=== PATIENT | female | born 1970 | race Caucasian/White ===

== ENCOUNTER 2017-04-18 11:50 | Emergency (ER) | payer MEDICARE, MEDICAID ==
[2017-04-18] MEDS ORDERED: Lorazepam 2 MG/ML VIAL ONE (12:16)
[2017-04-18 12:34] LABS: #Eosinphils 0.1 thou/uL (0.0-0.7); #Lymphocytes 1.5 thou/uL (1.20-3.40); #Monocytes 0.3 thou/uL (0.11-0.59); #Neutrophils 2.2 thou/uL (1.40-6.50); %Basophils 1.1 % (0.0-1.0); %Eosinophils 1.6 % (0.0-10.0); %Lymphocytes 36.6 % (21.0-51.0); %Monocytes 6.9 % (0.0-10.0); %Neutrophils 53.8 % (42.0-75.0); Hemoglobin 13.3 g/dL (12.0-16.0); Mean Corpuscular HGB CONC 34.4 g/dL (32.0-36.0); Mean Corpuscular Hemoglobin 29.1 pg (27.0-31.0); Mean Corpuscular Volume 84.6 fl (81.0-99.0); Mean Platelet Volume 8.6 fL (7.4-10.4); Platelet Count 108 thou/uL (130-400); RBC Distribution Width 11.3 % (11.5-14.5); Red Blood Cell (RBC) Count 4.59 mill/uL (4.20-5.40); White Blood Cell (WBC) Count 4.2 thou/uL (4.8-10.8)
[2017-04-18 12:36] LABS: MDiff Complete? YES; Manual Diff?? NO
[2017-04-18 12:51] LABS: ALT (SGPT) 17 U/L (8-55); AST (SGOT) 19 U/L (5-34); Albumin 4.1 g/dL (3.5-5.0); Alkaline Phosphatase 53 U/L (40-150); Anion Gap 13 mmol/L (10-20); BUN (Urea Nitrogen) 11 mg/dL (7.0-18.7); Calc. Creatinine Clearance 0 mL/min (70-130); Calcium 8.5 mg/dL (7.8-10.44); Carbon Dioxide 22 mmol/L (22-29); Chloride 109 mmol/L (98-107); Estimated GFR-MDRD 88; Globulin 2.9 g/dL (2.4-3.5); Glucose 116 mg/dL (70-105); Sodium 141 mmol/L (136-145)
[2017-04-18] MEDS ORDERED: Potassium Chloride 20 MEQ/100 ML PREMIX BAG ONE (13:55)
[2017-04-18 14:10] LABS: INR-International Normal Ratio 2.2; PTT 35.3 SEC (22.9-36.1); Prothrombin Time 25.3 SEC (12.0-14.7)
== END 2017-04-18 14:25 | disposition home or self-care (01) ==
LOC: BURERS 11:50
DX: F43.20 Adjustment disorder, unspecified (principal); E87.6 Hypokalemia; K21.9 Gastro-esophageal reflux disease without esophagitis; G40.909 Epilepsy, unspecified, not intractable, without status epilepticus; F32.9 Major depressive disorder, single episode, unspecified; F41.9 Anxiety disorder, unspecified; G35 Multiple sclerosis; Z86.718 Personal history of other venous thrombosis and embolism; Z79.01 Long term (current) use of anticoagulants; Z79.899 Other long term (current) drug therapy
CPT/HCPCS: 36415; 80053; 85025; 85610; 85730; 94760; 96374; A4353; J2060; J3480

== ENCOUNTER 2017-04-21 15:29 | Outpatient (CLI) | payer MEDICARE, MEDICAID ==
[2017-04-21 16:35] LABS: Prothrombin Time 23.3 SEC (12.0-14.7)
[2017-04-21 17:56] LABS: Bilirubin Negative (Negative); Blood, Urine Negative (Negative); Clarity Cloudy (Clear); Glucose, Urine (Dipstick) Negative (Negative); Leukocyte Trace (Negative); Nitrite Positive (Negative); Protein, Urine (Dipstick) Negative (Neg-Trace); Specific Gravity, Urine 1.025 (1.005-1.030); pH, Urine 6.5 (5.0-9.0)
[2017-04-21 18:03] LABS: Bacteria/HPF Rare-Few HPF (None Seen); Crystals/HPF None Seen HPF (Negative); Hyaline Casts/LPF NONE SEEN LPF (0-3 Hyaline); Other Casts/LPF None Seen LPF (0-3 Hyaline); Oval Fat Bodies/HPF None Seen HPF (None Seen); RBC/HPF 0-3 HPF (0-3); Renal Epithelial None Seen HPF (0-3); Sperm/HPF None Seen HPF (None Seen); Squamous Epithelial 0-3 HPF (0-3); Transitional Epithelial NONE SEEN HPF (0-3); Trichomonas/HPF None Seen HPF (None Seen); WBC/HPF 0-3 HPF (0-3); Yeast-All Forms None Seen HPF (None Seen)
== END 2017-04-21 15:30 | disposition home or self-care (01) ==
LOC: HPCALD 15:29
PROVIDERS: ATTEND Family Medicine
DX: R30.0 Dysuria (principal); R58 Hemorrhage, not elsewhere classified
CPT/HCPCS: 36415; 81001; 85610; 87086

== ENCOUNTER 2017-06-16 14:28 | Emergency (ER) | payer MEDICARE, MEDICAID ==
[2017-06-16] MEDS ORDERED: Lidocaine 1% w/Epinephrine 1:100K 30 ML VIAL ONE (14:44)
[2017-06-16] MEDS ORDERED: HYDROcodone/Acetaminophen 10/325 mg Tablet ONE (14:45)
[2017-06-16] MEDS ORDERED: Adacel (T-DAP) 0.5 ML VIAL ONE (15:14)
[2017-06-16] MEDS ORDERED: Ciprofloxacin 500 MG TAB ONE (15:19)
[2017-06-16] MEDS ORDERED: Bacitracin Zinc 1 Packet ONE (15:22)
== END 2017-06-16 15:28 | disposition home or self-care (01) ==
LOC: BURERS 14:28
DX: S01.511A Laceration without foreign body of lip, initial encounter (principal); S00.83XA Contusion of other part of head, initial encounter; Z23 Encounter for immunization; K21.9 Gastro-esophageal reflux disease without esophagitis; Z86.718 Personal history of other venous thrombosis and embolism; F41.9 Anxiety disorder, unspecified; G35 Multiple sclerosis; G40.909 Epilepsy, unspecified, not intractable, without status epilepticus; W19.XXXA Unspecified fall, initial encounter
CPT/HCPCS: 12011; 40650; 90471; 90715; J2001

== ENCOUNTER 2017-10-04 14:21 | Outpatient (CLI) | payer MEDICARE, MEDICAID ==
--- NOTE | 2017-10-04 21:34 | RAD ---
LEFLT HAND THREE VIEWS: FINDINGS: Longitudinal fractures of the distal fifth metacarpal are seen. Displacement is minimal. The other lynsey zo of the hand and wrist appear intact. IMPRESSION: Longitudinal fractures of the distal fifth metacarpal. POS: HOME
== END 2017-10-04 14:22 | disposition home or self-care (01) ==
LOC: BURRAD 14:21
PROVIDERS: ATTEND Family Medicine
DX: M79.89 Other specified soft tissue disorders (principal); S62.307A Unspecified fracture of fifth metacarpal bone, left hand, initial encounter for closed fracture

== ENCOUNTER 2017-11-13 17:52 | Emergency (ER) | payer MEDICARE, MEDICAID ==
[2017-11-13] MEDS ORDERED: Midazolam HCl 2 mg/2 ml Vial ONE (18:06)
[2017-11-13] MEDS ORDERED: levETIRAcetam 250 MG TAB PO SCH (19:30)
== END 2017-11-13 20:20 | disposition home or self-care (01) ==
LOC: BURERS 17:52
DX: G40.909 Epilepsy, unspecified, not intractable, without status epilepticus (principal); F41.9 Anxiety disorder, unspecified; F32.9 Major depressive disorder, single episode, unspecified; Z79.01 Long term (current) use of anticoagulants; Z79.899 Other long term (current) drug therapy
CPT/HCPCS: 96374; J2250

== ENCOUNTER 2018-01-02 20:58 | Emergency (ER) | payer MEDICARE, OTHER ==
[2018-01-02] MEDS ORDERED: Lorazepam 0.5 MG TAB ONE ×2 (21:38→21:41)
--- NOTE | 2018-01-02 22:16 | CT ---
CT OF THE BRAIN WITHOUT CONTRAST: 01/02/2018 COMPARISON: Study done at [facility] on 02/03/2017. FINDINGS: A little soft tissue swelling may be present over the soft tissues of the forehead, just to the right of midline. No skull fracture is seen. The visible paranasal sinuses are clear. The sphenoid sinu s shows no air-fluid level. The ventricles are unchanged in size from the prior study and show no shift. An extensive area of en cephalomalacia in the left posterior parietal region appears about the same as before. No intracrani al bleeding or extraaxial hematoma is seen. There are no findings strongly suggestive of an acute st roke. No mass is detected. IMPRESSION: Old left-sided stroke but no acute intracranial findings. POS: HOME
== END 2018-01-02 22:22 | disposition home or self-care (01) ==
LOC: BURERS 20:58
DX: S00.83XA Contusion of other part of head, initial encounter (principal); R56.9 Unspecified convulsions; K21.9 Gastro-esophageal reflux disease without esophagitis; G35 Multiple sclerosis; F41.9 Anxiety disorder, unspecified; F32.9 Major depressive disorder, single episode, unspecified; Z79.01 Long term (current) use of anticoagulants; Z91.14 Patient's other noncompliance with medication regimen; Z79.899 Other long term (current) drug therapy
CPT/HCPCS: 70450

== ENCOUNTER 2018-01-22 12:07 | Observation (INO) | payer MEDICARE, MEDICAID ==
[2018-01-22] MEDS ORDERED: Lorazepam 2 MG/ML VIAL ONE (12:25)
[2018-01-22 12:30] LABS: #Monocytes 0.3 thou/uL (0.11-0.59); #Neutrophils 5.8 thou/uL (1.40-6.50); %Basophils 0.6 % (0.0-1.0); %Eosinophils 0.6 % (0.0-10.0); %Lymphocytes 14.2 % (21.0-51.0); %Monocytes 4.7 % (0.0-10.0); %Neutrophils 79.9 % (42.0-75.0); Hemoglobin 14.7 g/dL (12.0-16.0); Mean Corpuscular HGB CONC 36.6 g/dL (32.0-36.0); Mean Corpuscular Volume 79.1 fl (81.0-99.0); Mean Platelet Volume 6.4 fL (7.4-10.4); Platelet Count 173 thou/uL (130-400); RBC Distribution Width 11.8 % (11.5-14.5); Red Blood Cell (RBC) Count 5.06 mill/uL (4.20-5.40); White Blood Cell (WBC) Count 7.3 thou/uL (4.8-10.8)
[2018-01-22 12:44] LABS: ALT (SGPT) 23 U/L (8-55); AST (SGOT) 23 U/L (5-34); Albumin 4.4 g/dL (3.5-5.0); Alkaline Phosphatase 70 U/L (40-150); Anion Gap 13 mmol/L (10-20); BUN (Urea Nitrogen) 16 mg/dL (7.0-18.7); Bilirubin, Total 0.5 mg/dL (0.2-1.2); Calc. Creatinine Clearance 0 mL/min (70-130); Calcium 9.1 mg/dL (7.8-10.44); Carbon Dioxide 25 mmol/L (22-29); Chloride 107 mmol/L (98-107); Estimated GFR-MDRD 74; Globulin 3.1 g/dL (2.4-3.5); Glucose 239 mg/dL (70-105); Potassium 3.9 mmol/L (3.5-5.1); Protein, Total 7.5 g/dL (6.0-8.3); Sodium 141 mmol/L (136-145)
[2018-01-22 12:58] LABS: Pregnancy Test - Urine (BHCG) Negative (Negative); Pregu Control Background? CLEAR/WHITE (CLR/WHITE); Pregu Control Bar Appear? YES (CONTROL BAR); Specific Gravity 1.027 (1.002-1.036)
[2018-01-22 12:59] LABS: Bilirubin Negative (Negative); Clarity Cloudy (Clear); Glucose, Urine (Dipstick) 100 mg/dL (Negative); Leukocyte Negative (Negative); Nitrite Negative (Negative); Protein, Urine (Dipstick) 30 mg/dL (Neg-Trace); Specific Gravity, Urine 1.027 (1.005-1.030); Urobilinogen 0.2 mg/dL (0.2-1.0)
[2018-01-22 13:00] LABS: Blood, Urine Small (Negative)
[2018-01-22 13:02] LABS: Bacteria/HPF 4+ HPF (None Seen); Squamous Epithelial 0-3 HPF (0-3); WBC/HPF 0-3 HPF (0-3)
[2018-01-22] MEDS ORDERED: Acetaminophen 325 MG TAB ONE (13:09)
[2018-01-22 13:20] LABS: INR-International Normal Ratio 2.5; Prothrombin Time 27.6 SEC (12.0-14.7)
[2018-01-22 13:21] LABS: PTT 34.5 SEC (22.9-36.1)
[2018-01-22] MEDS ORDERED: cefTRIAXone\\ROCEPHIN 1 GM VIAL ONE (14:46)
[2018-01-22] MEDS ORDERED: Water For Injection,Sterile 20 ML ONE (14:46)
[2018-01-22 15:43] LABS: CSF Source CSF; Clarity Clear (Clear); RBC Count - Manual 0 /cumm (None Seen); Tube # 4; WBC/NonHematics Count - Manual 2 /cumm (0-5)
[2018-01-22 15:44] LABS: Color Of CSF Supernatant COLORLESS (Colorless); Tube # 2; Unspun CSF Color COLORLESS (Colorless)
[2018-01-22 15:52] LABS: CSF, Glucose 82 mg/dl (40-70); CSF, Protein 32 mg/dL (15-40)
--- NOTE | 2018-01-22 16:58 | RAD ---
AP PORTABLE CHEST: 01/22/2018 1252 HOURS COMPARISON: Study from 01/22/2017 from [facility]. FINDINGS: The heart is normal in size. There is no infiltrate or effusion today. There is no edema or vascula r congestion. The trachea is midline. No gross fractures were identified. IMPRESSION: No acute findings. POS: HOME
--- NOTE | 2018-01-22 16:59 | CT ---
CT BRAIN WITHOUT CONTRAST: 01/22/2018 COMPARISON: 01/02/2018 FINDINGS: No intracranial bleeding or extraaxial hematoma is seen. The patient's old left parietal stroke with associated encephalomalacia is noted, as usual. It is unchanged in appearance. There are no findin gs of acute stroke, mass, or edema. The ventricles are normal in size and show no shift. No skull f racture is seen. The sphenoid sinus is clear. The mastoid air cells are under-aerated on the left s berta. IMPRESSION: Old left parietal stroke, but no acute intracranial findings. POS: HOME
[2018-01-22] MEDS ORDERED: Ondansetron HCl/PF 4 MG/2 ML Vial IVP PRN (18:07)
[2018-01-22] MEDS ORDERED: Ondansetron ODT 4 MG TAB SL PRN (18:07)
[2018-01-22] MEDS ORDERED: Acetaminophen 325 MG TAB PO PRN (18:07)
[2018-01-22] MEDS ORDERED: HYDROcodone/Acetaminophen 5/325 mg Tablet PO PRN (18:07)
[2018-01-22] MEDS ORDERED: Baclofen 10 MG TAB PO PRN (18:56)
[2018-01-22] MEDS: levETIRAcetam 250 MG TAB PO SCH (21:46)
[2018-01-22] MEDS: MYCOPHENOLATE 1000 MG PO SCH (23:30)
[2018-01-22] MEDS: LACOSAMIDE 100 MG PO SCH (23:30)
[2018-01-23 05:56] LABS: #Eosinphils 0.1 thou/uL (0.0-0.7); #Lymphocytes 1.4 thou/uL (1.20-3.40); #Monocytes 0.4 thou/uL (0.11-0.59); #Neutrophils 4.4 thou/uL (1.40-6.50); %Basophils 0.6 % (0.0-1.0); %Lymphocytes 21.6 % (21.0-51.0); %Monocytes 6.5 % (0.0-10.0); %Neutrophils 69.4 % (42.0-75.0); Hemoglobin 11.8 g/dL (12.0-16.0); Mean Corpuscular HGB CONC 35.5 g/dL (32.0-36.0); Mean Corpuscular Hemoglobin 27.8 pg (27.0-31.0); Mean Corpuscular Volume 78.5 fl (81.0-99.0); Mean Platelet Volume 6.8 fL (7.4-10.4); Platelet Count 127 thou/uL (130-400); RBC Distribution Width 11.7 % (11.5-14.5); Red Blood Cell (RBC) Count 4.24 mill/uL (4.20-5.40); White Blood Cell (WBC) Count 6.3 thou/uL (4.8-10.8)
[2018-01-23 06:13] LABS: Anion Gap 12 mmol/L (10-20)
[2018-01-23 06:16] LABS: ALT (SGPT) 22 U/L (8-55); AST (SGOT) 21 U/L (5-34); Albumin 3.4 g/dL (3.5-5.0); Alkaline Phosphatase 51 U/L (40-150); BUN (Urea Nitrogen) 8 mg/dL (7.0-18.7); Bilirubin, Total 1.1 mg/dL (0.2-1.2); Calc. Creatinine Clearance 0 mL/min (70-130); Calcium 8.5 mg/dL (7.8-10.44); Carbon Dioxide 23 mmol/L (22-29); Chloride 109 mmol/L (98-107); Estimated GFR-MDRD Greater than 90; Globulin 2.5 g/dL (2.4-3.5); Glucose 94 mg/dL (70-105); Potassium 3.6 mmol/L (3.5-5.1); Protein, Total 5.9 g/dL (6.0-8.3); Sodium 140 mmol/L (136-145)
[2018-01-23] MEDS ORDERED: Multivitamin W/ Minerals 1 TAB PO SCH (09:00)
[2018-01-23] MEDS ORDERED: Potassium Chloride 10 MEQ TAB PO SCH (09:00)
[2018-01-23] MEDS: levETIRAcetam 250 MG TAB PO SCH (09:17)
[2018-01-23] MEDS: LACOSAMIDE 100 MG PO SCH (09:18)
[2018-01-23] MEDS: MYCOPHENOLATE 1000 MG PO SCH (09:18)
[2018-01-23 09:51] VITALS: BP 112/57; TEMP 98.7
[2018-01-23] MEDS ORDERED: cefTRIAXone\\ROCEPHIN 1 GM in Sodium Chloride 0.9% 100 ML IVPB SCH (15:00)
[2018-01-23 15:16] LABS: Hemoglobin A1c 4.9 % (4.0-6.0)
[2018-01-23] MEDS ORDERED: Warfarin Sodium 5 MG TAB PO SCH (17:00)
--- NOTE | 2018-01-24 14:35 | HP ---
DATE OF ADMISSION: 01/22/2018 DATE OF DISCHARGE: 01/23/2018 CHIEF COMPLAINT: Confusion, status post seizure. HISTORY OF PRESENT ILLNESS: A 47-year-old female with underlying multiple sclerosis and history of s eizure disorder who presented to [facility] yesterday afternoon, status pos t being found down in her bathroom at home with noted confusion. She did not have a witnessed seizur e; however, this is strongly presumed. She was brought to the ER for evaluation due to her altered s ortega and had imaging and lab work done, which showed no leukocytosis or anemia with normal electrolyt es, renal function and liver enzymes. She does have a history of PE/DVT and her INR was therapeutic at 2.5. She did have a urinary tract infection. Her initial vitals did display the patient to have a fever; due to this and her altered state, a lumbar puncture was performed with an evaluation of thi s shown to be within normal limits. Imaging was performed as well showing a chest x-ray which displa yed no acute findings and a brain CT which showed an old left parietal stroke, but no acute intracran ial findings. The patient was admitted overnight and started on Rocephin empirically for her urinary tract infection. Nursing reports the patient's mental status has improved gradually throughout her stay and into the morning evaluation where at this time she is fully alert and oriented and appears t o be back to her baseline mental function.
--- NOTE | 2018-01-25 08:13 | SS ---
DATE OF ADMISSION: 01/22/2018 DATE OF DISCHARGE: 01/23/2018 CHIEF COMPLAINT: Altered mental status. HISTORY OF PRESENT ILLNESS: This is a 47-year-old female with underlying history of multiple sclerosis and seizure disorder, was found down in her bathroom at home by a family member in an altered mental state; it is felt that she had a seizure preceding this. She was subsequently brought to the [facility] for evaluation, which showed fairly stable labs with a white blood cell count of 7.3, H and H of 14.7 and 40, normal electrolytes, kidney function, and liver function, and a therapeutic INR at 2.5 , as she is on Coumadin for history of PE and DVT. Her urine did show to be positive for 4+ bacteria. She was also noted to be febrile, and secondary to this along with altered mentation, a lumbar puncture was performed with the fluid returning to be within normal limits. Imaging included a portable chest that showed no acute findings, and a brain CT , which showed an old left parietal stroke and no acute intracranial findings. The patient was admitted secondary to her altered state and noted urinary tract infection and was started on Rocephin empirically. Upon subsequent evaluation in the morning, the patient's mental status has returned back to her baseline and nursing confirms that her mental status improved steadily from yesterday evening overnight into the morning. She is fully alert and oriented at this time. Her labs have returned and once again are within normal limits. Hemoglobin A1c was ordered secondary to the initial glucose of 239; however, the A1c is normal at 4.9. Discussion with the patient revealed that she had run out of her seizure medications and had missed a couple doses. This has been felt to lead to her seizure with subsequent postictal state. She remained afebrile overnight, feels well this morning, and is amenable to discharge to her home setting where she lives with her and 4 children to finish a course of p.o. antibiotics. PAST MEDICAL HISTORY: Primary progressive multiple sclerosis, depression, epilepsy, pulmonary embolism, traumatic brain injury, gastroesophageal reflux disease. PAST SURGICAL HISTORY: Brain biopsy. SOCIAL HISTORY: Denies tobacco, ETOH, or illicit drug use. ALLERGIES: PENICILLIN and DILANTIN. FAMILY HISTORY: Noncontributory. CURRENT MEDICATIONS: Iron 325 mg p.o. daily, vitamin D3 1000 units p.o. daily, CellCept 500 mg 2 tablets p.o. b.i.d., daily multivitamin, sertraline 50 mg p.o. daily, Vimpat 100 mg p.o. b.i.d., Coumadin 5 mg p.o. daily, baclofen 10 mg 1/2 tablet 3 times a day p.r.n., Keppra 500 mg 2-1/2 tablets b.i.d.. REVIEW OF SYSTEMS: General: The patient denies fever, chills, or diaphoresis. Ear, Nose, and Throat: Denies sore throat, nasal drainage, or congestion. Cardiovascular: Denies chest pain or palpitations. Respiratory: Denies shortness of breath or cough. Gastrointestinal: Denies abdominal pain, nausea , vomiting, diarrhea, or constipation. Genitourinary: Denies dysuria. Musculoskeletal: Denies joint swelling. Dermatologic: Denies rash. Neurologic: Denies headache. LABORATORY DATA AND IMAGING as per HPI. PHYSICAL EXAMINATION: VITAL SIGNS: Temperature is 98.7, pulse is 74, respiratory rate is 18, oxygen is 98% on room air, blood pressure is 112/57. GENERAL: The patient is alert and oriented, in no acute distress. HEENT: Pupils equal, round, and reactive to light. Extraocular muscles are intact bilaterally. Sclerae are clear. Head, eyes, ears, nose, and throat within normal limits. Moist mucous membranes. NECK: Supple, with no meningeal signs. CARDIOVASCULAR: Regular rate and rhythm, normal S1 and S2. No murmurs, rubs, or gallops. RESPIRATORY: Clear to auscultation bilaterally without wheezes, rales, or rhonchi. GASTROINTESTINAL: Soft, nontender to palpation, no masses. EXTREMITIES: No clubbing, cyanosis, or edema. MUSCULOSKELETAL: Generalized weakness. SKIN: No rash. NEUROLOGIC: Cranial nerves II-XII grossly intact with no focal deficits. ASSESSMENT AND PLAN: 1. Seizure disorder. The patient had likely seizure at home secondary to medication noncompliance. She does have her seizure medications at this time and it has been stressed for the need for her to continue these medications diligently. Her neurologist is Dr. Linn. 2. Postictal encephalopathy. The patient has returned to her baseline mental status. No infectious etiology noted from lab work or lumbar puncture. However , she did have noted urinary tract infection, which will be further treated. 3. Multiple sclerosis. The patient is at her baseline. 4. Urinary tract infection. She will transition to p.o. Macrobid to complete 100 mg p.o. b.i.d. for 7 days. Her preliminary urine culture shows no growth at 12 hours. This may be followed up upon as an outpatient. 5. History of pulmonary embolus and deep venous thrombosis, for which she is on Coumadin therapy and therapeutic per INR. 6. Depression. The patient will continue her selective serotonin reuptake inhibitors. DISPOSITION: The patient will discharge to her home setting where she lives with her family and may follow up with Dr. Zeng in the clinic next week with advised followup of the patient's urine culture. DAWIT
[2018-01-26] MEDS ORDERED: Warfarin Sodium 7.5 MG TAB PO SCH (17:00)
== END 2018-01-23 11:05 | disposition home or self-care (01) ==
LOC: BURERS 12:07 → BURMED 16:45
PROVIDERS: ADMIT Family Medicine; ATTEND Family Medicine
DX: G93.40 Encephalopathy, unspecified (principal); G40.909 Epilepsy, unspecified, not intractable, without status epilepticus; G35 Multiple sclerosis; F32.9 Major depressive disorder, single episode, unspecified; N39.0 Urinary tract infection, site not specified; Z86.711 Personal history of pulmonary embolism; Z86.718 Personal history of other venous thrombosis and embolism; Z88.0 Allergy status to penicillin; Z88.8 Allergy status to other drugs, medicaments and biological substances; Z79.899 Other long term (current) drug therapy; Z79.01 Long term (current) use of anticoagulants
CPT/HCPCS: 36415; 51701; 70450; 71045; 80053; 81003; 81015; 81025; 82945; 83036; 84157; 85025; 85610; 85730; 87040; 87070; 87086; 87205; 87804; 89051; 96361; 96365; 96366; 96375; A4353; G0378; J0696; J2060; J3370

== ENCOUNTER 2018-01-24 08:59 | Emergency (ER) | payer MEDICARE, MEDICAID ==
[2018-01-24] MEDS ORDERED: diphenhydrAMINE 50 MG/ML VIAL ONE (09:27)
[2018-01-24] MEDS ORDERED: Promethazine HCl 25 MG/ML VIAL ONE (09:27)
[2018-01-24 09:33] LABS: #Eosinphils 0.1 thou/uL (0.0-0.7); #Lymphocytes 0.8 thou/uL (1.20-3.40); #Monocytes 0.2 thou/uL (0.11-0.59); #Neutrophils 3.2 thou/uL (1.40-6.50); %Basophils 0.8 % (0.0-1.0); %Neutrophils 74.2 % (42.0-75.0); Hemoglobin 12.7 g/dL (12.0-16.0); Mean Corpuscular HGB CONC 35.3 g/dL (32.0-36.0); Mean Corpuscular Hemoglobin 27.9 pg (27.0-31.0); Mean Platelet Volume 6.5 fL (7.4-10.4); Platelet Count 109 thou/uL (130-400); RBC Distribution Width 11.7 % (11.5-14.5); Red Blood Cell (RBC) Count 4.57 mill/uL (4.20-5.40); White Blood Cell (WBC) Count 4.3 thou/uL (4.8-10.8)
[2018-01-24 09:35] LABS: INR-International Normal Ratio 1.6; PTT 27.6 SEC (22.9-36.1); Prothrombin Time 19.6 SEC (12.0-14.7)
[2018-01-24 09:39] LABS: MDiff Complete? YES; Manual Diff?? NO
[2018-01-24 09:43] LABS: ALT (SGPT) 21 U/L (8-55); AST (SGOT) 24 U/L (5-34); Albumin 3.9 g/dL (3.5-5.0); Alkaline Phosphatase 55 U/L (40-150); Anion Gap 13 mmol/L (10-20); BUN (Urea Nitrogen) 11 mg/dL (7.0-18.7); Calc. Creatinine Clearance 0 mL/min (70-130); Calcium 8.8 mg/dL (7.8-10.44); Carbon Dioxide 22 mmol/L (22-29); Chloride 111 mmol/L (98-107); Estimated GFR-MDRD 90; Glucose 125 mg/dL (70-105); Potassium 3.9 mmol/L (3.5-5.1); Protein, Total 6.9 g/dL (6.0-8.3); Sodium 142 mmol/L (136-145)
[2018-01-24 09:44] LABS: Clarity Clear (Clear); Glucose, Urine (Dipstick) Negative (Negative); Leukocyte Negative (Negative); Nitrite Negative (Negative); Protein, Urine (Dipstick) Negative (Neg-Trace)
[2018-01-24 09:45] LABS: Bacteria/HPF None Seen HPF (None Seen); Bilirubin Negative (Negative); Blood, Urine Trace (Negative); Other Microscopic Description C&S SET UP; RBC/HPF 0-3 HPF (0-3); Squamous Epithelial 0-3 HPF (0-3); Urobilinogen 0.2 mg/dL (0.2-1.0); WBC/HPF None Seen HPF (0-3)
--- NOTE | 2018-01-24 10:42 | RAD ---
PORTABLE CHEST: Date: 01-24-18 An AP portable film at 0909 is compared with a 01-22-18 study. FINDINGS: There has been no significant interval change. The heart is normal in size. The lungs are clear. Ther e is no edema, congestion, or pleural effusion. No major lobar infiltrate was seen. The mediastinum a ppears normal. IMPRESSION: No acute thoracic finding. POS: HOME
--- NOTE | 2018-01-24 12:34 | CT ---
CT OF THE BRAIN WITHOUT CONTRAST: DATE: 01/24/18. COMPARISON: Comparison is made with the 01/02/18 study. FINDINGS: The ventricles are normal in size with no shift. No intracranial bleeding, mass, or edema was seen. As is usual in this patient, an extensive area of encephalomalacia is seen in the left parietal erica on from an old stroke. There is little lucency around the lateral ventricles on the left posteriorly , which has been seen on multiple studies and is probably chronic ischemic change. IMPRESSION: No change since the prior two scans. Stable encephalomalacia on the left. POS: HOME
== END 2018-01-24 11:17 | disposition home or self-care (01) ==
LOC: BURERS 08:59
DX: G97.1 Other reaction to spinal and lumbar puncture (principal); K21.9 Gastro-esophageal reflux disease without esophagitis; G40.909 Epilepsy, unspecified, not intractable, without status epilepticus; F41.9 Anxiety disorder, unspecified; F32.9 Major depressive disorder, single episode, unspecified; G35 Multiple sclerosis; Z86.718 Personal history of other venous thrombosis and embolism; Z87.820 Personal history of traumatic brain injury; Z85.841 Personal history of malignant neoplasm of brain; Z79.01 Long term (current) use of anticoagulants; Z79.899 Other long term (current) drug therapy
CPT/HCPCS: 36415; 51701; 70450; 71045; 80053; 81003; 81015; 85025; 85610; 85730; 87086; 96361; 96374; 96375; A4353; J1200; J2550

== ENCOUNTER 2018-03-02 11:47 | Emergency (ER) | payer MEDICARE, MEDICAID ==
[2018-03-02 12:23] LABS: #Eosinphils 0.2 thou/uL (0.0-0.7); #Lymphocytes 1.2 thou/uL (1.20-3.40); #Monocytes 0.3 thou/uL (0.11-0.59); #Neutrophils 2.5 thou/uL (1.40-6.50); %Basophils 0.7 % (0.0-1.0); %Eosinophils 5.2 % (0.0-10.0); %Lymphocytes 28.2 % (21.0-51.0); %Monocytes 8.1 % (0.0-10.0); %Neutrophils 57.8 % (42.0-75.0); Mean Corpuscular HGB CONC 35.9 g/dL (32.0-36.0); Mean Corpuscular Hemoglobin 27.6 pg (27.0-31.0); Mean Corpuscular Volume 76.8 fL (78.0-98.0); Mean Platelet Volume 6.7 fL (7.4-10.4); Platelet Count 131 thou/uL (130-400); RBC Distribution Width 11.8 % (11.5-14.5); White Blood Cell (WBC) Count 4.3 thou/uL (4.8-10.8)
[2018-03-02 12:50] LABS: ALT (SGPT) 15 U/L (8-55); AST (SGOT) 17 U/L (5-34); Albumin 3.9 g/dL (3.5-5.0); Alkaline Phosphatase 56 U/L (40-150); Anion Gap 15 mmol/L (10-20); BUN (Urea Nitrogen) 12 mg/dL (7.0-18.7); Bilirubin, Total 0.7 mg/dL (0.2-1.2); Calc. Creatinine Clearance 0 mL/min (70-130); Carbon Dioxide 23 mmol/L (22-29); Chloride 112 mmol/L (98-107); Estimated GFR-MDRD 87; Globulin 3.1 g/dL (2.4-3.5); Glucose 93 mg/dL (70-105); Potassium 4.1 mmol/L (3.5-5.1)
[2018-03-02 12:52] LABS: Sodium 146 mmol/L (136-145)
[2018-03-02] MEDS ORDERED: Lorazepam 0.5 MG TAB ONE (12:56)
== END 2018-03-02 13:12 | disposition home or self-care (01) ==
LOC: BURERS 11:47
DX: R56.9 Unspecified convulsions (principal); F41.9 Anxiety disorder, unspecified; F32.9 Major depressive disorder, single episode, unspecified; Z79.01 Long term (current) use of anticoagulants; Z86.718 Personal history of other venous thrombosis and embolism; Z79.899 Other long term (current) drug therapy
CPT/HCPCS: 36415; 80053; 85025; 99284

== ENCOUNTER 2018-09-05 11:32 | Emergency (ER) | payer MEDICAID, MEDICARE ==
[~2018-09-05 11:32] MED LIST: Iopamidol 370 76% 100 ML VIAL ONE
[2018-09-05 12:06] LABS: #Eosinphils 0.1 thou/uL (0.0-0.7); #Monocytes 0.3 thou/uL (0.11-0.59); #Neutrophils 3.4 thou/uL (1.40-6.50); %Basophils 0.8 % (0.0-1.0); %Monocytes 4.9 % (0.0-10.0); %Neutrophils 58.3 % (42.0-75.0); Hemoglobin 13.9 g/dL (12.0-16.0); Mean Corpuscular HGB CONC 33.2 g/dL (32.0-36.0); Mean Corpuscular Hemoglobin 28.5 pg (27.0-31.0); Mean Corpuscular Volume 85.8 fL (78.0-98.0); Mean Platelet Volume 6.7 fL (7.4-10.4); Platelet Count 136 thou/uL (130-400); RBC Distribution Width 12.9 % (11.5-14.5); Red Blood Cell (RBC) Count 4.88 mill/uL (4.20-5.40); White Blood Cell (WBC) Count 5.8 thou/uL (4.8-10.8)
[2018-09-05 12:18] LABS: Anion Gap 16 mmol/L (10-20); BUN (Urea Nitrogen) 16 mg/dL (7.0-18.7); Calc. Creatinine Clearance 0 mL/min (70-130); Calcium 9.9 mg/dL (7.8-10.44); Carbon Dioxide 21 mmol/L (22-29); Chloride 108 mmol/L (98-107); Estimated GFR-MDRD 71; Glucose 91 mg/dL (70-105); Potassium 4.1 mmol/L (3.5-5.1); Sodium 141 mmol/L (136-145)
[2018-09-05 12:50] LABS: Clarity Clear (Clear); Leukocyte Negative (Negative); Nitrite Negative (Negative); Protein, Urine (Dipstick) Negative (Neg-Trace)
[2018-09-05 12:51] LABS: Bilirubin Negative (Negative); Blood, Urine Trace (Negative); Glucose, Urine (Dipstick) Negative (Negative); Urobilinogen 0.2 mg/dL (0.2-1.0)
[2018-09-05 12:56] LABS: Bacteria/HPF Rare-Few HPF (None Seen); RBC/HPF 0-3 HPF (0-3); Squamous Epithelial 0-3 HPF (0-3); WBC/HPF 0-3 HPF (0-3)
[2018-09-05] MEDS ORDERED: Midazolam HCl 2 mg/2 ml Vial ONE (14:07)
[2018-09-05 15:12] LABS: INR-International Normal Ratio 1.6; PTT 31.4 SEC (22.9-36.1); Prothrombin Time 18.7 SEC (12.0-14.7)
--- NOTE | 2018-09-05 15:41 | RAD ---
CHEST ONE VIEW: Indication: History of altered mental status, seizure. FINDINGS: Lungs are clear. Heart size is upper limits of normal. No pleural effusion or pneumothorax. No acute osseous abnormality is evident. IMPRESSION: No acute cardiopulmonary abnormality. POS: [facility]
--- NOTE | 2018-09-05 15:58 | CT ---
CTA OF THE HEAD WITH CONTRAST AND 3D REFORMATTED IMAGING CTA OF THE NECK WITH IV CONTRAST AND 3D REFORMATTED IMAGING: Date: 09/05/18 COMPARISON: CT brain dated 09/05/18. FINDINGS: No large vessel occlusion is evident. The ICAs and vertebral arteries appear patent throughout their visualized course within the neck. The intracranial course of the ICAs and vertebral arteries appear patent. Visualized aspects of the basilar, MCA, and ACAs are patent. There is a remote left parietal cortical infarct. No abnormal enhancement is demonstrated. There is scattered degenerative and osteoa rthritic change of the visualized cervicothoracic spine. There is mild mucosal thickening seen within the ethmoid air cells. There is a craniectomy involving the left parietal region. IMPRESSION: No large vessel occlusion seen in head or neck. POS: [facility]
--- NOTE | 2018-09-05 19:04 | CT ---
CT BRAIN WITHOUT CONTRAST: 09/05/2018 HISTORY/TECHNIQUE: A spiral CT of the brain is performed for evaluation following mental status changes and a possible s eizure. COMPARISON: Prior study dated 01/24/2018. FINDINGS: There has been no significant interval change. Encephalomalacia from an old left parietal injury is seen with overlying osteotomy of the high left parietal bone. There is a little bit of periventricul ar lucency in the right posterior parietal region, around the ventricles, which has not changed eithe r. There are no findings strongly suggestive of acute stroke, mass, or edema. The middle cerebral a rteries , particularly on the right. Sometimes this can mean thrombosis, but the prior scan s howed a similar finding. See CT angio to follow. IMPRESSION: Old encephalomalacia, as noted. No definite acute findings. See commends above. POS: HOME
== END 2018-09-05 17:29 | disposition home or self-care (01) ==
LOC: BURERS 11:32
DX: G40.909 Epilepsy, unspecified, not intractable, without status epilepticus (principal); I63.9 Cerebral infarction, unspecified; F41.9 Anxiety disorder, unspecified; F32.9 Major depressive disorder, single episode, unspecified; Z79.01 Long term (current) use of anticoagulants; Z79.899 Other long term (current) drug therapy
CPT/HCPCS: 36415; 70450; 70496; 70498; 71045; 80048; 81003; 81015; 85025; 85610; 85730; 96374; J2250

== ENCOUNTER 2019-04-05 09:27 | Emergency (ER) | payer MEDICARE ==
[2019-04-05 10:39] LABS: #Eosinphils 0.1 thou/uL (0.0-0.7); #Lymphocytes 0.9 thou/uL (1.20-3.40); #Monocytes 0.3 thou/uL (0.11-0.59); #Neutrophils 2.4 thou/uL (1.40-6.50); %Basophils 0.8 % (0.0-1.0); %Eosinophils 2.1 % (0.0-10.0); %Lymphocytes 23.3 % (21.0-51.0); %Monocytes 9.2 % (0.0-10.0); %Neutrophils 64.7 % (42.0-75.0); Hemoglobin 12.6 g/dL (12.0-16.0); Mean Corpuscular HGB CONC 32.3 g/dL (32.0-36.0); Mean Corpuscular Hemoglobin 26.8 pg (27.0-31.0); Mean Corpuscular Volume 82.9 fL (78.0-98.0); Platelet Count 120 thou/uL (130-400); RBC Distribution Width 12.3 % (11.5-14.5); Red Blood Cell (RBC) Count 4.71 mill/uL (4.20-5.40); White Blood Cell (WBC) Count 3.8 thou/uL (4.8-10.8)
[2019-04-05 10:53] LABS: ALT (SGPT) 18 U/L (8-55); AST (SGOT) 18 U/L (5-34); Albumin 3.8 g/dL (3.5-5.0); Alkaline Phosphatase 62 U/L (40-150); Anion Gap 12 mmol/L (10-20); BUN (Urea Nitrogen) 11 mg/dL (7.0-18.7); Bilirubin, Total 0.4 mg/dL (0.2-1.2); CK (CPK) 52 U/L (29-168); Calc. Creatinine Clearance 0 mL/min (70-130); Calcium 9.1 mg/dL (7.8-10.44); Carbon Dioxide 24 mmol/L (22-29); Chloride 109 mmol/L (98-107); Estimated GFR-MDRD Greater than 90; Globulin 2.9 g/dL (2.4-3.5); Glucose 77 mg/dL (70-105); Potassium 4.1 mmol/L (3.5-5.1); Protein, Total 6.7 g/dL (6.0-8.3); Sodium 141 mmol/L (136-145)
[2019-04-05 11:21] LABS: Bilirubin Negative (Negative); Blood, Urine Small (Negative); Clarity Clear (Clear); Glucose, Urine (Dipstick) Negative (Negative); Leukocyte Moderate (Negative); Nitrite Positive (Negative); Protein, Urine (Dipstick) Negative (Neg-Trace); Urobilinogen 0.2 mg/dL (Less than 2)
[2019-04-05 11:30] LABS: Bacteria/HPF 3+ HPF (None Seen); RBC/HPF 0-3 HPF (0-3)
== END 2019-04-05 12:29 | disposition home or self-care (01) ==
LOC: BURERS 09:27
DX: G40.909 Epilepsy, unspecified, not intractable, without status epilepticus (principal); N39.0 Urinary tract infection, site not specified; F41.9 Anxiety disorder, unspecified; F32.9 Major depressive disorder, single episode, unspecified; G35 Multiple sclerosis; J90 Pleural effusion, not elsewhere classified; Z86.718 Personal history of other venous thrombosis and embolism; Z79.01 Long term (current) use of anticoagulants; Z79.899 Other long term (current) drug therapy
CPT/HCPCS: 36415; 80053; 81003; 81015; 82550; 83605; 85025; 99284

== ENCOUNTER 2019-08-17 17:23 | Outpatient (CLI) | payer MEDICARE ==
--- NOTE | 2019-08-17 19:46 | RAD ---
RIGHT FOOT THREE VIEWS: 08/17/19 An oblique fracture of the proximal phalanx of the fourth toe is noted. Flexion deformities are seen of the great toe and little toe. The remainder of the foot appears intact No periosteal reaction was seen. IMPRESSION: Acute fracture of the proximal phalanx of the fourth toe. POS: HOME
== END 2019-08-17 17:24 | disposition home or self-care (01) ==
LOC: BURRAD 17:23
PROVIDERS: ATTEND Family Medicine
DX: M79.671 Pain in right foot (principal); S92.511A Displaced fracture of proximal phalanx of right lesser toe(s), initial encounter for closed fracture

== ENCOUNTER 2020-01-11 17:45 | Emergency (ER) | payer MEDICARE ==
[2020-01-11 18:50] LABS: #Eosinphils 0.1 thou/uL (0.0-0.7); #Lymphocytes 1.1 thou/uL (1.20-3.40); #Monocytes 0.3 thou/uL (0.11-0.59); #Neutrophils 4.5 thou/uL (1.40-6.50); %Basophils 0.7 % (0.0-1.0); %Eosinophils 1.3 % (0.0-10.0); %Lymphocytes 18.2 % (21.0-51.0); %Monocytes 5.2 % (0.0-10.0); %Neutrophils 74.7 % (42.0-75.0); Hemoglobin 14.6 g/dL (12.0-16.0); Mean Corpuscular HGB CONC 30.9 g/dL (32.0-36.0); Mean Corpuscular Hemoglobin 27.6 pg (27.0-31.0); Mean Corpuscular Volume 89.5 fL (78.0-98.0); Mean Platelet Volume 7.5 fL (7.4-10.4); Platelet Count 156 thou/uL (130-400); RBC Distribution Width 12.8 % (11.5-14.5); Red Blood Cell (RBC) Count 5.28 mill/uL (4.20-5.40)
[2020-01-11 19:05] LABS: ALT (SGPT) 58 U/L (8-55); AST (SGOT) 44 U/L (5-34); Albumin 4.6 g/dL (3.5-5.0); Alkaline Phosphatase 86 U/L (40-110); Anion Gap 14 mmol/L (10-20); BUN (Urea Nitrogen) 15 mg/dL (7.0-18.7); Bilirubin, Total 0.7 mg/dL (0.2-1.2); Calc. Creatinine Clearance 0 mL/min (70-130); Calcium 9.5 mg/dL (7.8-10.44); Carbon Dioxide 23 mmol/L (22-29); Chloride 109 mmol/L (98-107); Estimated GFR-MDRD 81; Globulin 3.3 g/dL (2.4-3.5); Glucose 126 mg/dL (70-105); Potassium 4.1 mmol/L (3.5-5.1); Protein, Total 7.9 g/dL (6.0-8.3); Sodium 142 mmol/L (136-145)
[2020-01-11] MEDS ORDERED: Lorazepam 2 MG/ML VIAL ONE ×2 (19:09→19:38)
--- NOTE | 2020-01-11 20:08 | CT ---
CT OF THE BRAIN WITHOUT CONTRAST: 01/11/[address] was done for evaluation of seizures. The patient has a history of a prior left parie griffin stroke. Comparison is made with the prior study of 09/05/18. There has been no adverse interval change. Extensive gliosis from the prior left parietal stroke is a gain seen. There were no new findings of stroke. No mass, edema, or bleeding was present. The ventric les are unchanged in size from the prior exam. A craniotomy defect is seen in the high left posterior parietal region as before. There is no major opacification of the sinuses but the mastoid air cells are under aerated. IMPRESSION: Old left parietal stroke with extensive gliosis. No acute findings. Exam little different than the scan. Preliminary report called to Dr. Arredondo at 1953 on 01/11/20. POS: HOME
== END 2020-01-11 20:43 | disposition short-term general hospital (02) ==
LOC: BURERS 17:45
DX: G40.901 Epilepsy, unspecified, not intractable, with status epilepticus (principal); S09.93XA Unspecified injury of face, initial encounter; G35 Multiple sclerosis; F32.9 Major depressive disorder, single episode, unspecified; F41.9 Anxiety disorder, unspecified; Z79.01 Long term (current) use of anticoagulants; Z79.899 Other long term (current) drug therapy; K21.9 Gastro-esophageal reflux disease without esophagitis; Z86.718 Personal history of other venous thrombosis and embolism; Z86.711 Personal history of pulmonary embolism
CPT/HCPCS: 70450; 80053; 85025; 94760; J2060

== ENCOUNTER 2020-01-24 10:19 | Emergency (ER) | payer MEDICARE ==
--- NOTE | 2020-01-24 18:19 | RAD ---
RIGHT FOOT THREE VIEWS: 01/24/20 No major fracture was identified. An equivocal line was seen in the proximal phalanx of the fourth to e on one view but it could not be confirmed on others. This should be correlated with the exact site of pain. The remainder of the foot appeared intact. No periosteal reaction was seen. IMPRESSION: Equivocal line in the proximal phalanx of the fourth toe. Correlate with clinical exam. POS: HOME
== END 2020-01-24 13:14 | disposition home or self-care (01) ==
LOC: BURERS 10:19
DX: M25.571 Pain in right ankle and joints of right foot (principal); R23.3 Spontaneous ecchymoses; K21.9 Gastro-esophageal reflux disease without esophagitis; F41.9 Anxiety disorder, unspecified; F32.9 Major depressive disorder, single episode, unspecified; Z79.899 Other long term (current) drug therapy; Z79.01 Long term (current) use of anticoagulants; Z86.718 Personal history of other venous thrombosis and embolism

== ENCOUNTER 2020-02-03 17:24 | Emergency (ER) | payer MEDICARE ==
[2020-02-03] MEDS ORDERED: Lorazepam 2 MG/ML VIAL ONE (17:45)
[2020-02-03 17:56] LABS: #Basophils 0.1 thou/uL (0.0-0.2); #Eosinphils 0.1 thou/uL (0.0-0.7); #Lymphocytes 1.2 thou/uL (1.20-3.40); #Monocytes 0.4 thou/uL (0.11-0.59); #Neutrophils 2.7 thou/uL (1.40-6.50); %Basophils 1.3 % (0.0-1.0); %Eosinophils 1.8 % (0.0-10.0); %Lymphocytes 27.2 % (21.0-51.0); %Monocytes 9.4 % (0.0-10.0); %Neutrophils 60.2 % (42.0-75.0); Hemoglobin 12.6 g/dL (12.0-16.0); Mean Corpuscular HGB CONC 30.8 g/dL (32.0-36.0); Mean Corpuscular Hemoglobin 26.9 pg (27.0-31.0); Mean Corpuscular Volume 87.3 fL (78.0-98.0); Mean Platelet Volume 7.5 fL (7.4-10.4); Platelet Count 160 thou/uL (130-400); RBC Distribution Width 12.3 % (11.5-14.5); White Blood Cell (WBC) Count 4.5 thou/uL (4.8-10.8)
[2020-02-03 18:42] LABS: Bilirubin Negative (Negative); Blood, Urine Trace (Negative); Clarity Clear (Clear); Glucose, Urine (Dipstick) Negative (Negative); Leukocyte Small (Negative); Nitrite Negative (Negative); Protein, Urine (Dipstick) Negative (Neg-Trace); Urobilinogen 0.2 mg/dL (Less than 2)
[2020-02-03 18:50] LABS: ALT (SGPT) 20 U/L (8-55); AST (SGOT) 20 U/L (5-34); Alkaline Phosphatase 73 U/L (40-110); Anion Gap 12 mmol/L (10-20); BUN (Urea Nitrogen) 13 mg/dL (7.0-18.7); Bilirubin, Total 0.4 mg/dL (0.2-1.2); Calc. Creatinine Clearance 0 mL/min (70-130); Calcium 9.2 mg/dL (7.8-10.44); Carbon Dioxide 23 mmol/L (22-29); Chloride 109 mmol/L (98-107); Estimated GFR-MDRD 82; Glucose 113 mg/dL (70-105); Potassium 3.8 mmol/L (3.5-5.1); Sodium 140 mmol/L (136-145)
[2020-02-03 18:55] LABS: Bacteria/HPF Rare-Few HPF (None Seen); RBC/HPF 0-3 HPF (0-3); Squamous Epithelial 0-3 HPF (0-3); WBC/HPF 0-3 HPF (0-3)
== END 2020-02-03 19:23 | disposition home or self-care (01) ==
LOC: BURERS 17:24
DX: R56.9 Unspecified convulsions (principal); G35 Multiple sclerosis; K21.9 Gastro-esophageal reflux disease without esophagitis; F41.9 Anxiety disorder, unspecified; F32.9 Major depressive disorder, single episode, unspecified; Z79.899 Other long term (current) drug therapy
CPT/HCPCS: 80053; 81003; 81015; 85025; 96374; J2060

== ENCOUNTER 2020-03-12 10:51 | Outpatient (CLI) | payer MEDICARE ==
[2020-03-12 11:03] LABS: Prothrombin Time 22.9 sec (12.0-14.7)
== END 2020-03-12 10:52 | disposition home or self-care (01) ==
LOC: BURLABSP 10:51
PROVIDERS: ATTEND Family Medicine
DX: Z51.81 Encounter for therapeutic drug level monitoring (principal); Z86.711 Personal history of pulmonary embolism; Z79.01 Long term (current) use of anticoagulants
CPT/HCPCS: 85610

== ENCOUNTER 2020-03-14 12:35 | Outpatient (CLI) | payer MEDICARE ==
--- NOTE | 2020-03-14 13:27 | RAD ---
RIGHT FOOT 3 VIEWS: DATE: 03/14/2020. FINDINGS: The fracture of the proximal phalanx of the 4th toe continues to heal nicely. There has been further solidification of callus. No adverse changes in alignment were seen. IMPRESSION: Good healing of the proximal phalanx fracture of the 4th toe. POS: HOME
== END 2020-03-14 12:36 | disposition home or self-care (01) ==
LOC: BURRAD 12:35
PROVIDERS: ATTEND Family Medicine
DX: S92.514D Nondisplaced fracture of proximal phalanx of right lesser toe(s), subsequent encounter for fracture with routine healing (principal)

== ENCOUNTER 2020-05-27 11:28 | Emergency (ER) | payer MEDICAID, MEDICARE ==
[2020-05-27 12:02] LABS: #Eosinphils 0.1 thou/uL (0.0-0.7); #Lymphocytes 1.4 thou/uL (1.20-3.40); #Monocytes 0.4 thou/uL (0.11-0.59); #Neutrophils 2.9 thou/uL (1.40-6.50); %Basophils 0.8 % (0.0-1.0); %Eosinophils 2.9 % (0.0-10.0); %Lymphocytes 28.6 % (21.0-51.0); %Monocytes 8.5 % (0.0-10.0); %Neutrophils 59.2 % (42.0-75.0); Hemoglobin 13.1 g/dL (12.0-16.0); Mean Corpuscular HGB CONC 32.6 g/dL (32.0-36.0); Mean Corpuscular Hemoglobin 27.6 pg (27.0-31.0); Mean Corpuscular Volume 84.8 fL (78.0-98.0); Mean Platelet Volume 7.7 fL (7.4-10.4); Platelet Count 144 thou/uL (130-400); RBC Distribution Width 12.2 % (11.5-14.5); Red Blood Cell (RBC) Count 4.76 mill/uL (4.20-5.40); White Blood Cell (WBC) Count 4.9 thou/uL (4.8-10.8)
[2020-05-27 12:10] LABS: ALT (SGPT) 30 U/L (8-55); AST (SGOT) 21 U/L (5-34); Albumin 4.1 g/dL (3.5-5.0); Alkaline Phosphatase 79 U/L (40-110); Anion Gap 14 mmol/L (10-20); BUN (Urea Nitrogen) 15 mg/dL (7.0-18.7); Bilirubin, Total 0.4 mg/dL (0.2-1.2); Calc. Creatinine Clearance 0 mL/min (70-130); Carbon Dioxide 23 mmol/L (22-29); Chloride 108 mmol/L (98-107); Estimated GFR-MDRD 84; Globulin 3.1 g/dL (2.4-3.5); Glucose 108 mg/dL (70-105); Potassium 3.7 mmol/L (3.5-5.1); Protein, Total 7.2 g/dL (6.0-8.3); Sodium 141 mmol/L (136-145)
[2020-05-27] MEDS ORDERED: Aspirin Chewable 81 MG TAB ONE (12:31)
[2020-05-27] MEDS ORDERED: predniSONE 20 MG TAB ONE (12:31)
[2020-05-27 13:32] LABS: Bilirubin Negative (Negative); Blood, Urine Small (Negative); Clarity Slightly Cloudy (Clear); Glucose, Urine (Dipstick) Negative (Negative); Ketone, Urine Negative (Negative); Leukocyte Small (Negative); Nitrite Negative (Negative); Protein, Urine (Dipstick) Negative (Neg-Trace); Specific Gravity, Urine 1.015 (1.005-1.030); Urobilinogen 0.2 mg/dL (Less than 2)
[2020-05-27 13:38] LABS: Bacteria/HPF 2+ HPF (None Seen); RBC/HPF 0-3 HPF (0-3); Squamous Epithelial 0-3 HPF (0-3)
--- NOTE | 2020-05-27 18:23 | CT ---
CT BRAIN WITHOUT CONTRAST: Date: 05-27-2020 Comparison: 01-11-2020 FINDINGS: Encephalomalacia from the patient's old left parietal infarct is again noted. No intracranial bleedin g or extraaxial hematoma was seen. There is mild ventricular dilation that is no different than befor e. No mass or acute edema was seen. The skull appears intact. A craniotomy defect is seen in the left posterior parietal region as before. IMPRESSION: Old left parietal stroke and chronic changes but no acute intracranial findings. Preliminary report called to Dr. Solorzano at 1200 on 05-27-2020. POS: HOME
--- NOTE | 2020-05-27 18:24 | RAD ---
PORTABLE CHEST: Date: 05-27-2020 An AP portable film at 1206 is compared with a 01-11-2020 study. FINDINGS: The heart is normal in size and the mediastinum shows no widening or shift. There is no acute infiltr ate or effusion evident. There may be some minor scarring in the left costophrenic angle. No bony fra ctures were appreciated. IMPRESSION: No acute thoracic finding. POS: HOME
== END 2020-05-27 13:54 | disposition home or self-care (01) ==
LOC: BURERS 11:28
DX: S09.90XA Unspecified injury of head, initial encounter (principal); G51.0 Bell's palsy; K21.9 Gastro-esophageal reflux disease without esophagitis; F41.9 Anxiety disorder, unspecified; F32.9 Major depressive disorder, single episode, unspecified; Z79.899 Other long term (current) drug therapy; W18.30XA Fall on same level, unspecified, initial encounter
CPT/HCPCS: 70450; 71045; 80053; 81003; 81015; 84484; 85025; 87086; 93005; J7512

== ENCOUNTER 2020-05-28 01:49 | Emergency (ER) | payer MEDICARE ==
[2020-05-28] MEDS ORDERED: Lorazepam 2 MG/ML VIAL ONE (02:23)
[2020-05-28 02:29] LABS: #Lymphocytes 0.8 thou/uL (1.20-3.40); #Monocytes 0.2 thou/uL (0.11-0.59); #Neutrophils 5.7 thou/uL (1.40-6.50); %Basophils 0.2 % (0.0-1.0); %Monocytes 2.4 % (0.0-10.0); %Neutrophils 85.3 % (42.0-75.0); Hemoglobin 14.4 g/dL (12.0-16.0); Mean Corpuscular HGB CONC 30.9 g/dL (32.0-36.0); Mean Corpuscular Hemoglobin 26.5 pg (27.0-31.0); Mean Corpuscular Volume 85.9 fL (78.0-98.0); Platelet Count 171 thou/uL (130-400); Red Blood Cell (RBC) Count 5.44 mill/uL (4.20-5.40); White Blood Cell (WBC) Count 6.7 thou/uL (4.8-10.8)
[2020-05-28 02:36] LABS: INR-International Normal Ratio 2.5; Prothrombin Time 26.5 sec (12.0-14.7)
[2020-05-28 02:43] LABS: ALT (SGPT) 45 U/L (8-55); AST (SGOT) 40 U/L (5-34); Albumin 4.6 g/dL (3.5-5.0); Alkaline Phosphatase 91 U/L (40-110); Anion Gap 16 mmol/L (10-20); BUN (Urea Nitrogen) 12 mg/dL (7.0-18.7); Bilirubin, Total 0.3 mg/dL (0.2-1.2); Calc. Creatinine Clearance 0 mL/min (70-130); Calcium 9.2 mg/dL (7.8-10.44); Carbon Dioxide 22 mmol/L (22-29); Chloride 107 mmol/L (98-107); Estimated GFR-MDRD 74; Globulin 3.5 g/dL (2.4-3.5); Glucose 173 mg/dL (70-105); Potassium 4.3 mmol/L (3.5-5.1); Protein, Total 8.1 g/dL (6.0-8.3); Sodium 141 mmol/L (136-145)
[2020-05-28 02:48] LABS: Bilirubin Negative (Negative); Blood, Urine Moderate (Negative); Clarity Clear (Clear); Glucose, Urine (Dipstick) Negative (Negative); Ketone, Urine Negative (Negative); Leukocyte Negative (Negative); Nitrite Negative (Negative); Protein, Urine (Dipstick) 100 mg/dL (Neg-Trace); Urobilinogen 0.2 mg/dL (Less than 2)
[2020-05-28] MEDS ORDERED: Acetaminophen 650 MG Suppository ONE (02:50)
[2020-05-28] MEDS ORDERED: cefTRIAXone\\ROCEPHIN 2 GM VIAL ONE (03:12)
[2020-05-28] MEDS ORDERED: Sodium Chloride 0.9% 100 ML ONE (03:22)
--- NOTE | 2020-05-28 09:55 | CT ---
PRELIMINARY REPORT/[facility]/EMERGENCY AFTER HOURS PROCEDURE: EXAM: CT Head Without Intravenous Contrast. CLINICAL HISTORY: SEIZURE, PT HAS HX OF SEIZURES TECHNIQUE: Axial computed tomography images of the head/brain without intravenous contrast. COMPARISON: CT\SR - CT BRAIN WO CON - 05/27/2020 11:56 AM CDT FINDINGS: BRAIN: No acute intraparenchymal hemorrhage. No mass lesion. No CT evidence for acute territorial inf arct. No midline shift or extra-axial collection. Unchanged gliosis from prior insult and intervention involving the left superior frontoparietal regio n. Scattered white matter hypodensities most consistent with chronic microvascular ischemic changes. VENTRICLES: No hydrocephalus. ORBITS: The orbits are unremarkable. SINUSES AND MASTOIDS: The paranasal sinuses and mastoid air cells are clear. SOFT TISSUES: No significant facial or scalp soft tissue swelling evident. No radiopaque foreign body is seen. BONES: No acute skull fracture. Left parietal craniotomy with mesh plate fixation. IMPRESSION: No acute intracranial abnormality. No significant interval change. ELECTRONICALLY SIGNED BY: Kg Jacques M.D. May 28, 2020 2:33:46 AM CDT FINAL REPORT CT OF THE BRAIN WITHOUT CONTRAST: DATE: 05/28/2020. FINDINGS: Comparison is made with the 05/27 study. The patient has suffered a seizure in the interval. There has been no change in the appearance of the brain in the interval. Gliosis from the prior left parietal infarct is no different. There were no findings of acute stroke, mass, edema, or bleeding. The ventricular sizes are stable. IMPRESSION: No acute findings, exam unchanged from yesterday. Report in agreement with preliminary reading by [facility]. POS: HOME
== END 2020-05-28 03:29 | disposition short-term general hospital (02) ==
LOC: BURERS 01:49
DX: G40.909 Epilepsy, unspecified, not intractable, without status epilepticus (principal); K21.9 Gastro-esophageal reflux disease without esophagitis; F41.9 Anxiety disorder, unspecified; F32.9 Major depressive disorder, single episode, unspecified; Z79.899 Other long term (current) drug therapy
CPT/HCPCS: 51701; 70450; 80053; 81003; 82140; 83605; 84443; 84484; 85025; 85610; 87040; 87077; 87086; 87186; 93005; 96361; 96374; 96375; J0696; J2060; J3490

== ENCOUNTER 2020-06-21 10:08 | Emergency (ER) | payer MEDICARE ==
[2020-06-21 10:55] LABS: PTT 43.6 sec (22.9-36.1); Prothrombin Time 22.7 sec (12.0-14.7)
== END 2020-06-21 11:00 | disposition home or self-care (01) ==
LOC: BURERS 10:08
DX: S70.11XA Contusion of right thigh, initial encounter (principal); K21.9 Gastro-esophageal reflux disease without esophagitis; F41.9 Anxiety disorder, unspecified; F32.9 Major depressive disorder, single episode, unspecified; G35 Multiple sclerosis; Z79.899 Other long term (current) drug therapy; Z79.01 Long term (current) use of anticoagulants; Z86.711 Personal history of pulmonary embolism; W18.30XA Fall on same level, unspecified, initial encounter
CPT/HCPCS: 36415; 85610; 85730; 99283

== ENCOUNTER 2020-06-28 13:30 | Emergency (ER) | payer MEDICARE ==
[2020-06-28] MEDS ORDERED: Acetaminophen 500 MG TAB ONE (13:54)
--- NOTE | 2020-06-28 16:43 | RAD ---
RIGHT FOOT THREE VIEWS: 06/28/20 No fracture or joint abnormality was seen. All bones appeared intact. IMPRESSION: No acute bony finding. POS: HOME
--- NOTE | 2020-06-28 16:44 | RAD ---
RIGHT ANKLE THREE VIEWS: 06/28/20 No fracture was seen. The ankle joint showed smooth articular surfaces. IMPRESSION: No acute bony findings. POS: HOME
== END 2020-06-28 14:45 | disposition home or self-care (01) ==
LOC: BURERS 13:30
DX: S93.601A Unspecified sprain of right foot, initial encounter (principal); S93.401A Sprain of unspecified ligament of right ankle, initial encounter; K21.9 Gastro-esophageal reflux disease without esophagitis; F41.9 Anxiety disorder, unspecified; F32.9 Major depressive disorder, single episode, unspecified; Z79.01 Long term (current) use of anticoagulants; Z79.899 Other long term (current) drug therapy; W19.XXXA Unspecified fall, initial encounter

== ENCOUNTER 2020-07-27 15:04 | Emergency (ER) | payer MEDICARE ==
[2020-07-27] MEDS ORDERED: Lidocaine 4% Cream 5 GM TUBE w/ Tegaderm ONE (15:26)
[2020-07-27] MEDS ORDERED: Bacitracin 1 PK ONE (15:31)
[2020-07-27] MEDS ORDERED: Clindamycin 150 MG CAP ONE (15:48)
== END 2020-07-27 16:01 | disposition home or self-care (01) ==
LOC: BURERS 15:04
DX: S61.217A Laceration without foreign body of left little finger without damage to nail, initial encounter (principal); F41.9 Anxiety disorder, unspecified; F32.9 Major depressive disorder, single episode, unspecified; Z86.718 Personal history of other venous thrombosis and embolism; W26.9XXA Contact with unspecified sharp object(s), initial encounter
CPT/HCPCS: 99283

== ENCOUNTER 2020-07-30 14:39 | Emergency (ER) | payer MEDICARE ==
[2020-07-30] MEDS ORDERED: Bacitracin 1 PK ONE (16:05)
--- NOTE | 2020-07-30 16:42 | RAD ---
LEFT FIFTH DIGIT 07/30/20 No prior films were available for comparison. There is evidence of old trauma to the base of the prox imal phalanx of the fifth digit laterally (radial side). There is a suggestion of some arthritic abel ges in the IP joints of the fingers. No acute fracture was seen. There also was probably an old injur y to the distal fifth metacarpal. IMPRESSION: Evidence of old injuries as noted above. No acute bony findings. POS: HOME
== END 2020-07-30 16:13 | disposition home or self-care (01) ==
LOC: BURERS 14:39
DX: S61.217A Laceration without foreign body of left little finger without damage to nail, initial encounter (principal); K21.9 Gastro-esophageal reflux disease without esophagitis; F41.9 Anxiety disorder, unspecified; F32.9 Major depressive disorder, single episode, unspecified; Z79.01 Long term (current) use of anticoagulants; Z79.899 Other long term (current) drug therapy

== ENCOUNTER 2021-02-02 15:34 | Emergency (ER) | payer OTHER, MEDICARE ==
[2021-02-02] MEDS ORDERED: Acetaminophen 500 MG TAB ONE (16:06)
== END 2021-02-02 16:19 | disposition home or self-care (01) ==
LOC: BURERS 15:34
DX: S60.221A Contusion of right hand, initial encounter (principal); K21.9 Gastro-esophageal reflux disease without esophagitis; Z86.718 Personal history of other venous thrombosis and embolism; Z79.899 Other long term (current) drug therapy; Z79.01 Long term (current) use of anticoagulants; W01.0XXA Fall on same level from slipping, tripping and stumbling without subsequent striking against object, initial encounter

== ENCOUNTER 2022-04-21 08:41 | Emergency (ER) | payer OTHER, MEDICARE | END 2022-04-21 09:44 | disposition home or self-care (01) | LOC: BURERS 08:41 | DX: S93.401A Sprain of unspecified ligament of right ankle, initial encounter (principal); K21.9 Gastro-esophageal reflux disease without esophagitis; Z85.841 Personal history of malignant neoplasm of brain; Z86.718 Personal history of other venous thrombosis and embolism; Z79.01 Long term (current) use of anticoagulants; Z79.899 Other long term (current) drug therapy; W01.0XXA Fall on same level from slipping, tripping and stumbling without subsequent striking against object, initial encounter ==

== ENCOUNTER 2022-04-24 09:53 | Outpatient (CLI) | payer MEDICARE | END 2022-04-24 09:54 | disposition home or self-care (01) | LOC: BURRAD 09:53 | PROVIDERS: ATTEND Nurse Practitioner Family | DX: M79.671 Pain in right foot (principal) ==

== ENCOUNTER 2022-11-26 12:58 | Inpatient (IN) | payer MEDICARE ==
[2022-11-26] MEDS ORDERED: WARFARIN SODIUM 7.5 MG PO SCH (15:45)
[2022-11-26] MEDS ORDERED: Warfarin Sodium 5 MG TAB PO SCH (15:45)
[2022-11-26] MEDS ORDERED: FLU VACC QS2022-23(6MO UP)/PF 60 MCG/0.5 ML SYRINGE IM ONE (17:15)
[2022-11-26] MEDS ORDERED: Acetaminophen 500 MG TAB PO PRN (18:20)
[2022-11-26] MEDS ORDERED: Ondansetron ODT 4 MG TAB PO PRN (18:21)
[2022-11-26] MEDS: Warfarin Sodium 5 MG TAB PO SCH (18:33)
[2022-11-26] MEDS: levETIRAcetam 500 MG TAB PO SCH (20:58)
[2022-11-26] MEDS: Mycophenolate 250 MG CAP PO SCH (21:00)
[2022-11-26] MEDS: Zonisamide 100 MG CAP PO SCH (21:01)
[2022-11-26] MEDS: Senokot S 8.6-50 MG TAB PO SCH (21:02)
[2022-11-27 07:35] LABS: INR-International Normal Ratio 1.4; Prothrombin Time 17.6 sec (12.0-14.7)
[2022-11-27] MEDS: levETIRAcetam 500 MG TAB PO SCH ×2 (08:33→20:07)
[2022-11-27] MEDS: Baclofen 10 MG TAB PO SCH (08:34)
[2022-11-27] MEDS: Senokot S 8.6-50 MG TAB PO SCH ×2 (08:34→20:09)
[2022-11-27] MEDS: Mycophenolate 250 MG CAP PO SCH ×2 (08:34→20:06)
[2022-11-27] MEDS: Sertraline 25 MG TAB PO SCH (08:35)
[2022-11-27] MEDS: Multivitamin W/ Minerals 1 TAB PO SCH (08:35)
[2022-11-27 10:39] VITALS: BMI 24.5
[2022-11-27] MEDS: Warfarin Sodium 5 MG TAB PO SCH (17:18)
[2022-11-27] MEDS: Zonisamide 100 MG CAP PO SCH (20:06)
[2022-11-28 05:46] LABS: INR-International Normal Ratio 1.4; Prothrombin Time 17.3 sec (12.0-14.7)
[2022-11-28] MEDS: Mycophenolate 250 MG CAP PO SCH ×2 (09:10→20:02)
[2022-11-28] MEDS: Multivitamin W/ Minerals 1 TAB PO SCH (09:11)
[2022-11-28] MEDS: Sertraline 25 MG TAB PO SCH (09:11)
[2022-11-28] MEDS: Baclofen 10 MG TAB PO SCH (09:11)
[2022-11-28] MEDS: levETIRAcetam 500 MG TAB PO SCH ×2 (09:12→20:04)
[2022-11-28] MEDS: Senokot S 8.6-50 MG TAB PO SCH ×2 (09:15→20:01)
[2022-11-28] MEDS ORDERED: Warfarin Sodium 2.5 MG TAB PO SCH (17:00)
[2022-11-28] MEDS: Warfarin Sodium 2.5 MG TAB PO SCH (17:06)
[2022-11-28] MEDS: Zonisamide 100 MG CAP PO SCH (20:01)
[2022-11-29 05:52] LABS: INR-International Normal Ratio 1.6; Prothrombin Time 19.7 sec (12.0-14.7)
[2022-11-29] MEDS: Mycophenolate 250 MG CAP PO SCH ×2 (08:55→21:07)
[2022-11-29] MEDS: Multivitamin W/ Minerals 1 TAB PO SCH (08:56)
[2022-11-29] MEDS: Sertraline 25 MG TAB PO SCH (08:56)
[2022-11-29] MEDS: Senokot S 8.6-50 MG TAB PO SCH ×2 (08:56→21:06)
[2022-11-29] MEDS: levETIRAcetam 500 MG TAB PO SCH ×2 (08:56→21:06)
[2022-11-29] MEDS: Baclofen 10 MG TAB PO SCH (08:56)
[2022-11-29] MEDS: Warfarin Sodium 2.5 MG TAB PO SCH (16:34)
[2022-11-29] MEDS: Zonisamide 100 MG CAP PO SCH (21:06)
[2022-11-30 05:35] LABS: INR-International Normal Ratio 1.5
[2022-11-30] MEDS: Baclofen 10 MG TAB PO SCH (08:24)
[2022-11-30] MEDS: Senokot S 8.6-50 MG TAB PO SCH ×2 (08:24→21:42)
[2022-11-30] MEDS: Multivitamin W/ Minerals 1 TAB PO SCH (08:25)
[2022-11-30] MEDS: Mycophenolate 250 MG CAP PO SCH ×2 (08:25→21:41)
[2022-11-30] MEDS: levETIRAcetam 500 MG TAB PO SCH ×2 (08:25→21:40)
[2022-11-30] MEDS: Sertraline 25 MG TAB PO SCH (08:25)
[2022-11-30] MEDS: Warfarin Sodium 2.5 MG TAB PO SCH (16:57)
[2022-11-30] MEDS ORDERED: Warfarin Sodium 2.5 MG TAB PO SCH (17:00)
[2022-11-30] MEDS ORDERED: Loperamide HCl 2 MG CAP PO PRN (19:52)
[2022-11-30] MEDS: Zonisamide 100 MG CAP PO SCH (21:41)
[2022-12-01 06:18] LABS: INR-International Normal Ratio 1.9
[2022-12-01] MEDS: levETIRAcetam 500 MG TAB PO SCH ×2 (08:50→20:37)
[2022-12-01] MEDS: Mycophenolate 250 MG CAP PO SCH ×2 (08:51→20:36)
[2022-12-01] MEDS: Sertraline 25 MG TAB PO SCH (08:51)
[2022-12-01] MEDS: Baclofen 10 MG TAB PO SCH (08:51)
[2022-12-01] MEDS: Multivitamin W/ Minerals 1 TAB PO SCH (08:51)
[2022-12-01] MEDS: Senokot S 8.6-50 MG TAB PO SCH ×2 (08:51→20:35)
[2022-12-01] MEDS: Warfarin Sodium 2.5 MG TAB PO SCH (16:46)
[2022-12-01] MEDS: Zonisamide 100 MG CAP PO SCH (20:37)
[2022-12-02 05:21] LABS: Hemoglobin 12.5 g/dL (12.0-16.0); Platelet Count 141 10x3/uL (130-400)
[2022-12-02 05:31] LABS: INR-International Normal Ratio 2.2; Prothrombin Time 25.2 sec (12.0-14.7)
[2022-12-02 05:45] VITALS: BP 97/60; TEMP 98.5
[2022-12-02] MEDS: Mycophenolate 250 MG CAP PO SCH (08:35)
[2022-12-02] MEDS: levETIRAcetam 500 MG TAB PO SCH (08:35)
[2022-12-02] MEDS: Sertraline 25 MG TAB PO SCH (08:36)
[2022-12-02] MEDS: Multivitamin W/ Minerals 1 TAB PO SCH (08:37)
[2022-12-02] MEDS: Baclofen 10 MG TAB PO SCH (08:37)
[2022-12-02] MEDS: Senokot S 8.6-50 MG TAB PO SCH (08:38)
[2022-12-02] MEDS ORDERED: Warfarin Sodium 5 MG TAB PO SCH (17:00)
== END 2022-12-02 10:10 | disposition home or self-care (01) | DRG 948 ==
LOC: BURMED 13:35
PROVIDERS: ADMIT Family Medicine; ATTEND Family Medicine
DX: R53.1 Weakness (principal); G40.909 Epilepsy, unspecified, not intractable, without status epilepticus; F41.9 Anxiety disorder, unspecified; F32.A Depression, unspecified; G35 Multiple sclerosis; Z86.718 Personal history of other venous thrombosis and embolism
CPT/HCPCS: 36415; 36416; 85014; 85018; 85049; 85610; J7517

== ENCOUNTER 2023-01-10 13:17 | Emergency (ER) | payer MEDICARE ==
[2023-01-10 13:45] LABS: #Lymphocytes 1.5 thou/uL (1.20-3.40); #Monocytes 0.4 thou/uL (0.11-0.59); #Neutrophils 2.2 thou/uL (1.40-6.50); %Basophils 0.5 % (0.0-1.0); %Eosinophils 0.9 % (0.0-10.0); %Lymphocytes 35.8 % (21.0-51.0); %Monocytes 9.1 % (0.0-10.0); %Neutrophils 53.8 % (42.0-75.0); Hemoglobin 14.1 g/dL (12.0-16.0); Mean Corpuscular HGB CONC 33.3 g/dL (32.0-36.0); Mean Corpuscular Hemoglobin 28.3 pg (27.0-31.0); Mean Corpuscular Volume 84.9 fl (78.0-98.0); Mean Platelet Volume 6.4 fL (7.4-10.4); Platelet Count 134 10x3/uL (130-400); RBC Distribution Width 11.6 % (11.5-14.5); Red Blood Cell (RBC) Count 4.96 mill/uL (4.20-5.40); White Blood Cell (WBC) Count 4.1 10x3/uL (4.8-10.8)
[2023-01-10 13:55] LABS: PTT 41.2 sec (22.9-36.1); Prothrombin Time 32.4 sec (12.0-14.7)
[2023-01-10 13:57] LABS: Anion Gap 12 mmol/L (10-20); BUN (Urea Nitrogen) 9 mg/dL (9.8-20.1); Calc. Creatinine Clearance 0 mL/min (70-130); Calcium 9.8 mg/dL (7.8-10.44); Carbon Dioxide 22 mmol/L (22-29); Chloride 112 mmol/L (98-107); Estimated GFR 101; Glucose 113 mg/dL (70-105); Potassium 3.6 mmol/L (3.5-5.1); Sodium 142 mmol/L (136-145)
== END 2023-01-10 21:30 | disposition home or self-care (01) ==
LOC: BURERS 13:17
DX: S00.83XA Contusion of other part of head, initial encounter (principal); K21.9 Gastro-esophageal reflux disease without esophagitis; Z79.01 Long term (current) use of anticoagulants; Z79.899 Other long term (current) drug therapy; W22.8XXA Striking against or struck by other objects, initial encounter
CPT/HCPCS: 70450; 80048; 85025; 85610; 85730

== ENCOUNTER 2024-05-31 11:45 | Outpatient (CLI) | payer OTHER ==
[2024-05-31 12:05] LABS: INR-International Normal Ratio 2.4; Prothrombin Time 25.9 sec (12.0-14.7)
== END 2024-05-31 11:46 | disposition home or self-care (01) ==
LOC: BURLAB 11:45
PROVIDERS: ATTEND Nurse Practitioner Family
DX: Z51.81 Encounter for therapeutic drug level monitoring (principal); I48.91 Unspecified atrial fibrillation; Z79.01 Long term (current) use of anticoagulants
CPT/HCPCS: 85610